=== PATIENT | male | born 2000 | race Caucasian/White ===

== ENCOUNTER 2021-08-18 12:02 | Outpatient (REF) | payer OTHER, SELFPAY ==
[2021-08-18 13:42] LABS: COVID-19 Test Negative (Negative)
== END 2021-08-18 12:03 | disposition home or self-care (01) ==
LOC: HO.LAB 12:02
PROVIDERS: Visit Provider Internal Medicine
DX: Z20.822 Contact with and (suspected) exposure to COVID-19 (principal)
CPT/HCPCS: 36415; 87635; C9803

== ENCOUNTER 2021-11-15 09:33 | Outpatient (REF) | payer OTHER, SELFPAY ==
[2021-11-15 10:25] LABS: COVID-19 Test Negative (Negative)
== END 2021-11-15 09:34 | disposition home or self-care (01) ==
LOC: HO.LAB 09:33
PROVIDERS: Visit Provider Internal Medicine
DX: Z20.822 Contact with and (suspected) exposure to COVID-19 (principal)
CPT/HCPCS: 36415; 87635; C9803